=== PATIENT | male | born 1980 | race Two or more races ===

== ENCOUNTER 2016-09-23 09:20 | Emergency (ER) | payer OTHER ==
[2016-09-23 09:33] VITALS: BP 162/101
== END 2016-09-23 10:34 | disposition home or self-care (01) ==
LOC: ED 09:20
DX: S81.851A Open bite, right lower leg, initial encounter (principal); E78.00 Pure hypercholesterolemia, unspecified; W54.0XXA Bitten by dog, initial encounter; Y93.89 Activity, other specified; Y99.8 Other external cause status; Y92.89 Other specified places as the place of occurrence of the external cause
CPT/HCPCS: 90715

== ENCOUNTER 2017-09-03 10:57 | Emergency (ER) | payer MEDICAID ==
[~2017-09-03] VITALS: Ht 167.6 cm; Wt 85.7 kg
[2017-09-03 11:28] LABS: PLATELET COUNT 226 x10^3mcL (130-400)
[2017-09-03 11:30] LABS: BASOPHIL % 2.2 % (0-2); RED CELL DISTRIBUTION WIDTH 21.3 % (11.5-14.5)
[2017-09-03 11:31] LABS: rbc morphology (normal/abnorm) ABNORMAL (NORMAL)
[2017-09-03 11:44] LABS: CALCIUM 8.2 mg/dL (8.5-10.1); CARBON DIOXIDE 24.7 mmol/L (21-32); CHLORIDE SERUM 108 mmol/L (98-107); CREATININE SERUM 0.5 mg/dL (0.7-1.3); GFR1 > 60 mL/min; GLUCOSE SERUM 98 mg/dL (74-106); SODIUM SERUM 144 mmol/L (136-145)
[2017-09-03 11:48] LABS: ALBUMIN 4.2 g/dL (3.4-5.0); ALKALINE PHOSPHATASE 102 U/L (46-116); ALT/SGPT 289 U/L (16-63); AST/SGOT 251 U/L (15-37); BILIRUBIN TOTAL 0.26 mg/dL (0.20-1.00); LIPASE 647 IU/L (73-393); TOTAL PROTEIN, SERUM 8.1 g/dL (6.4-8.2)
[2017-09-03 12:52] VITALS: BP 130/74
== END 2017-09-03 12:52 | disposition home or self-care (01) ==
LOC: ED 10:57
PROVIDERS: Emergency Medicine
DX: K85.90 Acute pancreatitis without necrosis or infection, unspecified (principal); R19.7 Diarrhea, unspecified; I10 Essential (primary) hypertension; E78.00 Pure hypercholesterolemia, unspecified; K74.60 Unspecified cirrhosis of liver
CPT/HCPCS: 99406; J1885; J2405; J7030

== ENCOUNTER 2017-09-11 08:13 | Emergency (ER) | payer MEDICAID ==
[~2017-09-11] VITALS: Ht 170.2 cm; Wt 82.1 kg
[2017-09-11 08:22] VITALS: Ht 170.2 cm; Wt 82.1 kg
[2017-09-11 09:55] VITALS: BP 120/79
== END 2017-09-11 09:55 | disposition home or self-care (01) ==
LOC: ED 08:13
DX: N39.0 Urinary tract infection, site not specified (principal); I10 Essential (primary) hypertension; E78.00 Pure hypercholesterolemia, unspecified; K74.60 Unspecified cirrhosis of liver
CPT/HCPCS: J1885